=== PATIENT | male | born 1960 | race African-American/Black ===

== ENCOUNTER 2023-08-28 08:46 | Day surgery (SDC) | payer OTHER ==
[2023-08-28 09:52] VITALS: BP 162/75; TEMP 98.1
[2023-08-28] MEDS ORDERED: Iopamidol-M 300 61% 15 ML VIAL ONE (13:45)
== END 2023-08-28 11:51 | disposition home or self-care (01) ==
LOC: CSHRAD 08:46
PROVIDERS: ATTEND Neurological Surgery
PROC: B02BYZZ Computerized Tomography (CT Scan) of Spinal Cord using Other Contrast (ICD-10-PCS; principal; 2023-08-28)
DX: M47.22 Other spondylosis with radiculopathy, cervical region (principal); M47.12 Other spondylosis with myelopathy, cervical region; M50.122 Cervical disc disorder at C5-C6 level with radiculopathy; M50.123 Cervical disc disorder at C6-C7 level with radiculopathy
CPT/HCPCS: 62302; 72050; 72126; Q9967